=== PATIENT | male | born 1975 | race Caucasian/White ===

== ENCOUNTER 2018-09-05 21:47 | Emergency (ER) | payer MEDICAID ==
[2018-09-06] MEDS: DIPHTH/TET/ACEL PERTUSS (ADULT) 0.5 ML VIAL IM* (01:42)
== END 2018-09-06 02:12 | disposition home or self-care (01) ==
LOC: FTE 21:47
DX: L03.115 Cellulitis of right lower limb (principal); E11.9 Type 2 diabetes mellitus without complications; I10 Essential (primary) hypertension; Z23 Encounter for immunization; Z79.84 Long term (current) use of oral hypoglycemic drugs
CPT/HCPCS: 90471; 90715; 99283

== ENCOUNTER 2019-01-07 02:14 | Emergency (ER) | payer MEDICAID ==
[2019-01-07] MEDS: HYDROCODONE/APAP (10/325) TAB PO (03:24)
== END 2019-01-07 05:46 | disposition home or self-care (01) ==
LOC: FTE 02:14
DX: L03.115 Cellulitis of right lower limb (principal); E11.9 Type 2 diabetes mellitus without complications; I10 Essential (primary) hypertension; Z79.4 Long term (current) use of insulin
CPT/HCPCS: 73610; 73610-RT; 73630; 93971; 99284-25

== ENCOUNTER 2019-01-10 00:03 | Inpatient (IN) | payer MEDICAID ==
[2019-01-10 00:30] LABS: ADD MAN DIFF? NO
[2019-01-10 00:32] LABS: BASOPHILS % 0.3 % (0.0-2.0); EOSINOPHILS # 0.1 10^3/ul (0.0-0.5); EOSINOPHILS % 0.6 % (0.0-7.0); HEMATOCRIT 34.8 % (42.0-52.0); HEMOGLOBIN 11.9 g/dl (14.0-18.0); LYMPHOCYTES # 1.5 10^3/ul (0.8-2.9); LYMPHOCYTES % 10.1 % (15.0-51.0); MEAN CORPUSCULAR HEMOGLOBIN 29.3 pg (29.0-33.0); MEAN CORPUSCULAR HGB CONC 34.2 g/dl (32.0-37.0); MEAN CORPUSCULAR VOLUME 85.7 fl (82.0-101.0); MEAN PLATELET VOLUME 9.8 fl (7.4-10.4); MONOCYTE # 1.2 10^3/ul (0.3-0.9); MONOCYTES % 8.2 % (0.0-11.0); NEUTROPHIL # 11.7 10^3/ul (1.6-7.5); NEUTROPHILS % 80.3 % (39.0-77.0); PLATELET COUNT 252 10^3/UL (140-415); RED BLOOD COUNT 4.06 10^6/ul (4.70-6.10); RED CELL DISTRIBUTION WIDTH 11.6 % (11.5-14.5)
[2019-01-10 00:32] LABS: WHITE BLOOD COUNT 14.6 10^3/ul (4.8-10.8)
[2019-01-10] MEDS: SODIUM CHLORIDE 0.9% 1L BAG IV* (00:36)
[2019-01-10] MEDS: PIPER-TAZO 3.375 GM IV (PMX) 100 ML IVPB (00:36)
[2019-01-10] MEDS: ACETAMINOPHEN 325 MG TAB PO (00:36)
[2019-01-10 00:50] LABS: ADD UMIC YES; UR ASCORBIC ACID NEGATIVE (NEGATIVE); UR BILIRUBIN (Dip) NEGATIVE (NEGATIVE); UR BLOOD (Dip) 1+ mg/dL (NEGATIVE); UR CLARITY CLEAR (CLEAR); UR COLOR YELLOW (YELLOW); UR GLUCOSE (Dip) 3+ mg/dL (NEGATIVE); UR KETONES (Dip) NEGATIVE (NEGATIVE); UR LEUKOCYTE ESTERASE (Dip) NEGATIVE Leu/ul (NEGATIVE); UR NITRITE (Dip) NEGATIVE (NEGATIVE); UR RBC 0 /HPF (0-5); UR SPECIFIC GRAVITY (Dip) 1.027 (1.003-1.030); UR TOTAL PROTEIN (Dip) NEGATIVE (NEGATIVE); UR UROBILINOGEN (Dip) 1+ mg/dL (NEGATIVE); UR WBC 1 /HPF (0-5)
[2019-01-10 00:52] LABS: INR 0.95; PROTIME 12.8 Sec (11.9-14.9)
[2019-01-10 00:53] LABS: PARTIAL THROMBOPLASTIN TIME 35.7 Sec (23.0-35.0)
[2019-01-10 00:54] LABS: ALANINE AMINOTRANSFERASE 31 IU/L (13-69); ALBUMIN/GLOBULIN RATIO 1.05; ALKALINE PHOSPHATASE 171 IU/L (42-121); ANION GAP 12 (5-13); ASPARTATE AMINO TRANSFERASE 21 IU/L (15-46); BILIRUBIN,INDIRECT 0.3 mg/dl (0-1.1); BILIRUBIN,TOTAL 0.3 mg/dl (0.2-1.3); BLOOD UREA NITROGEN 12 mg/dl (7-20); CARBON DIOXIDE 22 mmol/L (21-31); CHLORIDE 101 mmol/L (97-110); CREATININE 0.71 mg/dl (0.61-1.24); Estimated GFR > 60 mL/min (>60); POTASSIUM 4.3 mmol/L (3.5-5.1); SODIUM 135 mmol/L (135-144); TOTAL PROTEIN 7.8 g/dl (6.1-8.1)
[2019-01-10 01:00] LABS: GLUCOSE 440 mg/dl (70-220)
[2019-01-10] MEDS ORDERED: ACETAMINOPHEN 325 MG TAB PO ×2 (01:00→03:30)
[2019-01-10] MEDS ORDERED: ONDANSETRON 4 MG INJ IV ×2 (01:00→03:30)
[2019-01-10 01:06] LABS: TROPONIN-I < 0.012 ng/ml (0.000-0.120)
[2019-01-10] MEDS: VANCOMYCIN 1 GM (PMX) 250 ML IVPB (01:07)
[2019-01-10] MEDS: INSULIN REGULAR, HUMAN 100 UNIT/1 ML 3ML VIAL IVP (02:50)
[2019-01-10] MEDS ORDERED: DEXTROSE 50% 50 ML SYRINGE IV ×3 (03:00→04:00)
[2019-01-10] MEDS ORDERED: NACL 0.9% 3 ML SYG IV (03:30)
[2019-01-10] MEDS ORDERED: ALBUTEROL/IPRATROPIUM (NEB) 3 ML AMP HHN (03:30)
[2019-01-10] MEDS ORDERED: PROMETHAZINE/CODEINE 5ML CUP PO (03:30)
[2019-01-10] MEDS ORDERED: GLUCAGON 1 MG INJ IM (04:00)
[2019-01-10] MEDS ORDERED: GLUCOSE GEL 15 GRAM TUBE PO ×2 (04:00)
[2019-01-10] MEDS ORDERED: GLUCOSE GEL 15 GRAM TUBE BUCCAL (04:00)
[2019-01-10] MEDS: SOD CHLORIDE 0.9% 1,000 ML IV ×3 (04:11→20:36)
[2019-01-10 05:44] LABS: ADD MAN DIFF? NO
[2019-01-10 05:49] LABS: BASOPHILS % 0.2 % (0.0-2.0); EOSINOPHILS # 0.1 10^3/ul (0.0-0.5); EOSINOPHILS % 0.6 % (0.0-7.0); HEMATOCRIT 29.4 % (42.0-52.0); HEMOGLOBIN 10.2 g/dl (14.0-18.0); LYMPHOCYTES # 1.7 10^3/ul (0.8-2.9); LYMPHOCYTES % 13.6 % (15.0-51.0); MEAN CORPUSCULAR HEMOGLOBIN 29.8 pg (29.0-33.0); MEAN CORPUSCULAR HGB CONC 34.7 g/dl (32.0-37.0); MONOCYTE # 1.2 10^3/ul (0.3-0.9); MONOCYTES % 9.3 % (0.0-11.0); NEUTROPHIL # 9.5 10^3/ul (1.6-7.5); PLATELET COUNT 208 10^3/UL (140-415); RED BLOOD COUNT 3.42 10^6/ul (4.70-6.10); RED CELL DISTRIBUTION WIDTH 11.6 % (11.5-14.5)
[2019-01-10 05:49] LABS: WHITE BLOOD COUNT 12.5 10^3/ul (4.8-10.8)
[2019-01-10] MEDS: PANTOPRAZOLE (EC) 40 MG TAB PO (05:54)
[2019-01-10] MEDS: VANCOMYCIN 1 GM 250 ML IVPB ×3 (05:54→22:10)
[2019-01-10] MEDS: IBUPROFEN 600 MG TAB PO ×4 (05:55→23:47)
[2019-01-10 06:08] LABS: HEMOGLOBIN A1C 9.2 % (0-5.9)
[2019-01-10 06:10] LABS: LACTIC ACID 1.2 mmol/L (0.5-2.0)
[2019-01-10 06:23] LABS: ALANINE AMINOTRANSFERASE 38 IU/L (13-69); ALBUMIN 2.7 g/dl (3.3-4.9); ALKALINE PHOSPHATASE 125 IU/L (42-121); ANION GAP 8 (5-13); ASPARTATE AMINO TRANSFERASE 22 IU/L (15-46); BILIRUBIN,INDIRECT 0.3 mg/dl (0-1.1); BILIRUBIN,TOTAL 0.3 mg/dl (0.2-1.3); BLOOD UREA NITROGEN 10 mg/dl (7-20); CALCIUM 7.6 mg/dl (8.4-10.2); CARBON DIOXIDE 21 mmol/L (21-31); CHLORIDE 109 mmol/L (97-110); CREATININE 0.62 mg/dl (0.61-1.24); Estimated GFR > 60 mL/min (>60); GLUCOSE 294 mg/dl (70-220); MAGNESIUM 1.7 mg/dl (1.7-2.5); PHOSPHORUS 2.9 mg/dl (2.5-4.9); POTASSIUM 4.2 mmol/L (3.5-5.1); SODIUM 138 mmol/L (135-144); TOTAL PROTEIN 5.7 g/dl (6.1-8.1)
[2019-01-10] MEDS: INSULIN ASPART [NOVOLOG] 3 ML PEN SC ×7 (07:59→20:29)
[2019-01-10] MEDS: metFORMIN 500 MG TAB PO ×2 (08:06→17:38)
[2019-01-10] MEDS: INSULIN GLARGINE [LANTus] (100 UNITS/ML) SYG SC (08:06)
[2019-01-10] MEDS: CEFEPIME 1GM/50 ML (PMX) 50 ML IVPB ×2 (08:56→20:25)
[2019-01-10] MEDS ORDERED: NON-FORMULARY/PATIENT OWN MED (Omeprazole* 40 MG) PO (09:00)
[2019-01-10] MEDS ORDERED: VANCOMYCIN IV PER PHARMACY XX (09:00)
[2019-01-10] MEDS: HEPARIN 5,000 UNIT/1 ML VIAL SC ×2 (09:43→20:28)
[2019-01-11] MEDS: ACCU-CHEK XX (02:06)
[2019-01-11] MEDS: SOD CHLORIDE 0.9% 1,000 ML IV ×3 (02:07→15:39)
[2019-01-11] MEDS: PANTOPRAZOLE (EC) 40 MG TAB PO (05:42)
[2019-01-11] MEDS: IBUPROFEN 600 MG TAB PO ×3 (05:42→17:08)
[2019-01-11 06:08] LABS: ADD MAN DIFF? NO
[2019-01-11 06:11] LABS: BASOPHILS % 0.4 % (0.0-2.0); EOSINOPHILS # 0.2 10^3/ul (0.0-0.5); EOSINOPHILS % 1.8 % (0.0-7.0); MEAN CORPUSCULAR HEMOGLOBIN 29.6 pg (29.0-33.0); MEAN CORPUSCULAR HGB CONC 34.3 g/dl (32.0-37.0); MEAN CORPUSCULAR VOLUME 86.4 fl (82.0-101.0); MEAN PLATELET VOLUME 10.1 fl (7.4-10.4); MONOCYTE # 0.9 10^3/ul (0.3-0.9); MONOCYTES % 8.5 % (0.0-11.0); NEUTROPHIL # 7.9 10^3/ul (1.6-7.5); PLATELET COUNT 266 10^3/UL (140-415); RED BLOOD COUNT 4.05 10^6/ul (4.70-6.10); RED CELL DISTRIBUTION WIDTH 11.9 % (11.5-14.5)
[2019-01-11 06:11] LABS: WHITE BLOOD COUNT 11.1 10^3/ul (4.8-10.8)
[2019-01-11 06:50] LABS: ANION GAP 10 (5-13); BLOOD UREA NITROGEN 9 mg/dl (7-20); CALCIUM 9.2 mg/dl (8.4-10.2); CARBON DIOXIDE 24 mmol/L (21-31); CHLORIDE 108 mmol/L (97-110); CREATININE 0.62 mg/dl (0.61-1.24); Estimated GFR > 60 mL/min (>60); GLUCOSE 153 mg/dl (70-220); MAGNESIUM 1.9 mg/dl (1.7-2.5); PHOSPHORUS 3.3 mg/dl (2.5-4.9); POTASSIUM 3.9 mmol/L (3.5-5.1); SODIUM 142 mmol/L (135-144)
[2019-01-11 07:18] LABS: VANCOMYCIN,TROUGH 10.9 ug/ml (10.0-20.0)
[2019-01-11] MEDS: VANCOMYCIN 1 GM 250 ML IVPB ×3 (07:44→23:12)
[2019-01-11] MEDS: INSULIN GLARGINE [LANTus] (100 UNITS/ML) SYG SC (08:02)
[2019-01-11] MEDS: INSULIN ASPART [NOVOLOG] 3 ML PEN SC ×7 (08:03→21:00)
[2019-01-11] MEDS: HEPARIN 5,000 UNIT/1 ML VIAL SC ×2 (08:04→21:50)
[2019-01-11] MEDS: metFORMIN 500 MG TAB PO ×2 (08:04→17:09)
[2019-01-11] MEDS: CEFEPIME 1GM/50 ML (PMX) 50 ML IVPB ×2 (09:45→21:50)
[2019-01-11 13:08] LABS: C-REACTIVE PROTEIN 15.7 mg/dl (0.0-0.9)
[2019-01-11 13:16] LABS: PROCALCITONIN 0.11 ng/mL (0.00-0.10)
[2019-01-11 13:29] LABS: ERYTHROCYTE SEDIMENTATION RATE 109 mm/Hr (0-15)
[2019-01-11] MEDS ORDERED: hydrALAzine 20 MG INJ IV (16:30)
[2019-01-12] MEDS: IBUPROFEN 600 MG TAB PO ×4 (00:40→18:01)
[2019-01-12] MEDS: ACCU-CHEK XX (02:00)
[2019-01-12] MEDS: VANCOMYCIN 1 GM 250 ML IVPB ×3 (05:44→22:04)
[2019-01-12] MEDS: PANTOPRAZOLE (EC) 40 MG TAB PO (05:44)
[2019-01-12] MEDS: SOD CHLORIDE 0.9% 1,000 ML IV ×3 (05:50→21:05)
[2019-01-12] MEDS: INSULIN ASPART [NOVOLOG] 3 ML PEN SC ×7 (07:54→20:57)
[2019-01-12] MEDS: CEFEPIME 1GM/50 ML (PMX) 50 ML IVPB ×2 (08:29→20:54)
[2019-01-12] MEDS: metFORMIN 500 MG TAB PO ×2 (08:29→17:20)
[2019-01-12] MEDS: INSULIN GLARGINE [LANTus] (100 UNITS/ML) SYG SC (08:31)
[2019-01-12] MEDS: HEPARIN 5,000 UNIT/1 ML VIAL SC ×2 (08:32→20:58)
[2019-01-12] MEDS: DAKINS 0.0125%(1/40) 473 ML SOLUTION TP (12:34)
[2019-01-12 18:05] LABS: ADD MAN DIFF? NO
[2019-01-12 18:16] LABS: BASOPHILS % 0.3 % (0.0-2.0); EOSINOPHILS # 0.2 10^3/ul (0.0-0.5); EOSINOPHILS % 1.5 % (0.0-7.0); HEMATOCRIT 31.5 % (42.0-52.0); HEMOGLOBIN 10.8 g/dl (14.0-18.0); LYMPHOCYTES # 1.1 10^3/ul (0.8-2.9); LYMPHOCYTES % 11.2 % (15.0-51.0); MEAN CORPUSCULAR HEMOGLOBIN 29.4 pg (29.0-33.0); MEAN CORPUSCULAR HGB CONC 34.3 g/dl (32.0-37.0); MEAN CORPUSCULAR VOLUME 85.8 fl (82.0-101.0); MEAN PLATELET VOLUME 9.5 fl (7.4-10.4); MONOCYTE # 0.6 10^3/ul (0.3-0.9); MONOCYTES % 6.3 % (0.0-11.0); NEUTROPHIL # 7.8 10^3/ul (1.6-7.5); NEUTROPHILS % 80.3 % (39.0-77.0); PLATELET COUNT 292 10^3/UL (140-415); RED BLOOD COUNT 3.67 10^6/ul (4.70-6.10); RED CELL DISTRIBUTION WIDTH 11.8 % (11.5-14.5)
[2019-01-12 18:16] LABS: WHITE BLOOD COUNT 9.7 10^3/ul (4.8-10.8)
[2019-01-12 18:33] LABS: C-REACTIVE PROTEIN 7.4 mg/dl (0.0-0.9)
[2019-01-12 19:38] LABS: ERYTHROCYTE SEDIMENTATION RATE 90 mm/Hr (0-15)
[2019-01-12 23:01] LABS: PROCALCITONIN 0.09 ng/mL (0.00-0.10)
[2019-01-13] MEDS: IBUPROFEN 600 MG TAB PO ×4 (00:13→17:41)
[2019-01-13] MEDS: ACCU-CHEK XX (02:00)
[2019-01-13] MEDS: SOD CHLORIDE 0.9% 1,000 ML IV ×2 (04:06→12:00)
[2019-01-13] MEDS: PANTOPRAZOLE (EC) 40 MG TAB PO (05:35)
[2019-01-13] MEDS: VANCOMYCIN 1 GM 250 ML IVPB ×3 (05:35→22:30)
[2019-01-13 07:31] LABS: ADD MAN DIFF? NO
[2019-01-13 07:39] LABS: WHITE BLOOD COUNT 9.2 10^3/ul (4.8-10.8)
[2019-01-13 07:39] LABS: BASOPHIL # 0.1 10^3/ul (0.0-0.1); BASOPHILS % 0.5 % (0.0-2.0); EOSINOPHILS # 0.2 10^3/ul (0.0-0.5); HEMATOCRIT 31.4 % (42.0-52.0); HEMOGLOBIN 10.6 g/dl (14.0-18.0); LYMPHOCYTES # 1.7 10^3/ul (0.8-2.9); LYMPHOCYTES % 18.4 % (15.0-51.0); MEAN CORPUSCULAR HEMOGLOBIN 29.3 pg (29.0-33.0); MEAN CORPUSCULAR HGB CONC 33.8 g/dl (32.0-37.0); MEAN CORPUSCULAR VOLUME 86.7 fl (82.0-101.0); MEAN PLATELET VOLUME 9.7 fl (7.4-10.4); MONOCYTE # 0.9 10^3/ul (0.3-0.9); MONOCYTES % 9.6 % (0.0-11.0); NEUTROPHIL # 6.3 10^3/ul (1.6-7.5); NEUTROPHILS % 69.1 % (39.0-77.0); PLATELET COUNT 289 10^3/UL (140-415); RED BLOOD COUNT 3.62 10^6/ul (4.70-6.10); RED CELL DISTRIBUTION WIDTH 11.8 % (11.5-14.5)
[2019-01-13] MEDS: INSULIN ASPART [NOVOLOG] 3 ML PEN SC ×7 (08:00→21:00)
[2019-01-13 08:05] LABS: ANION GAP 8 (5-13); BLOOD UREA NITROGEN 9 mg/dl (7-20); CARBON DIOXIDE 28 mmol/L (21-31); CHLORIDE 106 mmol/L (97-110); Estimated GFR > 60 mL/min (>60); GLUCOSE 131 mg/dl (70-220); POTASSIUM 3.9 mmol/L (3.5-5.1); SODIUM 142 mmol/L (135-144)
[2019-01-13] MEDS: HEPARIN 5,000 UNIT/1 ML VIAL SC ×2 (08:16→21:39)
[2019-01-13] MEDS: INSULIN GLARGINE [LANTus] (100 UNITS/ML) SYG SC (08:16)
[2019-01-13] MEDS: CEFEPIME 1GM/50 ML (PMX) 50 ML IVPB ×2 (08:19→21:30)
[2019-01-13] MEDS: DAKINS 0.0125%(1/40) 473 ML SOLUTION TP (08:20)
[2019-01-13] MEDS: metFORMIN 500 MG TAB PO ×2 (08:20→17:41)
[2019-01-14] MEDS: IBUPROFEN 600 MG TAB PO ×5 (00:10→23:50)
[2019-01-14] MEDS: ACCU-CHEK XX (02:00)
[2019-01-14] MEDS: VANCOMYCIN 1 GM 250 ML IVPB ×2 (06:05→13:25)
[2019-01-14] MEDS: PANTOPRAZOLE (EC) 40 MG TAB PO (06:06)
[2019-01-14 06:22] LABS: ADD MAN DIFF? NO
[2019-01-14 06:27] LABS: WHITE BLOOD COUNT 6.6 10^3/ul (4.8-10.8)
[2019-01-14 06:27] LABS: BASOPHILS % 0.6 % (0.0-2.0); EOSINOPHILS # 0.2 10^3/ul (0.0-0.5); EOSINOPHILS % 3.6 % (0.0-7.0); HEMOGLOBIN 10.8 g/dl (14.0-18.0); LYMPHOCYTES # 1.5 10^3/ul (0.8-2.9); MEAN CORPUSCULAR HEMOGLOBIN 28.9 pg (29.0-33.0); MEAN CORPUSCULAR HGB CONC 33.8 g/dl (32.0-37.0); MEAN CORPUSCULAR VOLUME 85.6 fl (82.0-101.0); MEAN PLATELET VOLUME 9.3 fl (7.4-10.4); MONOCYTE # 0.6 10^3/ul (0.3-0.9); MONOCYTES % 9.7 % (0.0-11.0); NEUTROPHIL # 4.2 10^3/ul (1.6-7.5); NEUTROPHILS % 63.5 % (39.0-77.0); PLATELET COUNT 289 10^3/UL (140-415); RED BLOOD COUNT 3.74 10^6/ul (4.70-6.10); RED CELL DISTRIBUTION WIDTH 11.9 % (11.5-14.5)
[2019-01-14 06:56] LABS: ANION GAP 6 (5-13); BLOOD UREA NITROGEN 10 mg/dl (7-20); CALCIUM 9.4 mg/dl (8.4-10.2); CARBON DIOXIDE 28 mmol/L (21-31); CHLORIDE 107 mmol/L (97-110); CREATININE 0.57 mg/dl (0.61-1.24); Estimated GFR > 60 mL/min (>60); GLUCOSE 138 mg/dl (70-220); SODIUM 141 mmol/L (135-144)
[2019-01-14] MEDS: INSULIN ASPART [NOVOLOG] 3 ML PEN SC ×7 (08:17→21:00)
[2019-01-14] MEDS: INSULIN GLARGINE [LANTus] (100 UNITS/ML) SYG SC (08:19)
[2019-01-14] MEDS: HEPARIN 5,000 UNIT/1 ML VIAL SC ×2 (08:21→22:22)
[2019-01-14] MEDS: CEFEPIME 1GM/50 ML (PMX) 50 ML IVPB (08:22)
[2019-01-14] MEDS: metFORMIN 500 MG TAB PO ×2 (08:23→17:18)
[2019-01-14] MEDS: LISINOPRIL 5 MG TAB PO (08:23)
[2019-01-14] MEDS: DAKINS 0.0125%(1/40) 473 ML SOLUTION TP (08:25)
[2019-01-14 08:26] LABS: MAGNESIUM 1.7 mg/dl (1.7-2.5)
[2019-01-14 08:26] LABS: PHOSPHORUS 4.2 mg/dl (2.5-4.9)
[2019-01-14] MEDS: CLINDAMYCIN 600 MG/D5W (PMX) 50 ML IVPB (22:20)
[2019-01-15] MEDS: ACCU-CHEK XX (02:00)
[2019-01-15] MEDS: CLINDAMYCIN 600 MG/D5W (PMX) 50 ML IVPB ×2 (06:16→13:48)
[2019-01-15] MEDS: PANTOPRAZOLE (EC) 40 MG TAB PO (06:16)
[2019-01-15] MEDS: IBUPROFEN 600 MG TAB PO ×3 (06:17→17:27)
[2019-01-15 07:28] LABS: ADD MAN DIFF? NO
[2019-01-15 07:34] LABS: BASOPHILS % 0.5 % (0.0-2.0); EOSINOPHILS # 0.2 10^3/ul (0.0-0.5); EOSINOPHILS % 3.1 % (0.0-7.0); HEMATOCRIT 33.6 % (42.0-52.0); HEMOGLOBIN 11.2 g/dl (14.0-18.0); LYMPHOCYTES # 1.6 10^3/ul (0.8-2.9); LYMPHOCYTES % 19.9 % (15.0-51.0); MEAN CORPUSCULAR HEMOGLOBIN 29.2 pg (29.0-33.0); MEAN CORPUSCULAR HGB CONC 33.3 g/dl (32.0-37.0); MEAN CORPUSCULAR VOLUME 87.5 fl (82.0-101.0); MEAN PLATELET VOLUME 9.4 fl (7.4-10.4); MONOCYTE # 0.7 10^3/ul (0.3-0.9); MONOCYTES % 8.3 % (0.0-11.0); NEUTROPHIL # 5.3 10^3/ul (1.6-7.5); NEUTROPHILS % 67.4 % (39.0-77.0); PLATELET COUNT 338 10^3/UL (140-415); RED BLOOD COUNT 3.84 10^6/ul (4.70-6.10); RED CELL DISTRIBUTION WIDTH 11.9 % (11.5-14.5)
[2019-01-15 07:34] LABS: WHITE BLOOD COUNT 7.8 10^3/ul (4.8-10.8)
[2019-01-15 07:56] LABS: PHOSPHORUS 4.3 mg/dl (2.5-4.9)
[2019-01-15 07:56] LABS: MAGNESIUM 1.8 mg/dl (1.7-2.5)
[2019-01-15 08:09] LABS: ANION GAP 7 (5-13); BLOOD UREA NITROGEN 11 mg/dl (7-20); CALCIUM 9.5 mg/dl (8.4-10.2); CARBON DIOXIDE 30 mmol/L (21-31); CHLORIDE 105 mmol/L (97-110); CREATININE 0.63 mg/dl (0.61-1.24); Estimated GFR > 60 mL/min (>60); GLUCOSE 131 mg/dl (70-220); POTASSIUM 4.5 mmol/L (3.5-5.1); SODIUM 142 mmol/L (135-144)
[2019-01-15] MEDS: metFORMIN 500 MG TAB PO ×2 (08:21→17:27)
[2019-01-15] MEDS: INSULIN ASPART [NOVOLOG] 3 ML PEN SC ×6 (08:22→17:27)
[2019-01-15] MEDS: INSULIN GLARGINE [LANTus] (100 UNITS/ML) SYG SC (08:23)
[2019-01-15] MEDS: LISINOPRIL 5 MG TAB PO (08:45)
[2019-01-15] MEDS: HEPARIN 5,000 UNIT/1 ML VIAL SC (08:46)
[2019-01-15] MEDS: CHOLECALCIFEROL 1,000 UNIT TAB PO (08:46)
[2019-01-15] MEDS: DAKINS 0.0125%(1/40) 473 ML SOLUTION TP ×2 (08:51→15:15)
== END 2019-01-15 20:19 | disposition home or self-care (01) | DRG 854 ==
LOC: E/R 00:03 → PP2 00:52
PROC: 0Y9M3ZX Drainage of Right Foot, Percutaneous Approach, Diagnostic (ICD-10-PCS; principal; 2019-01-11)
PROC: 0JBQ0ZZ Excision of Right Foot Subcutaneous Tissue and Fascia, Open Approach (ICD-10-PCS; 2019-01-14)
DX: A41.9 Sepsis, unspecified organism (principal); L03.115 Cellulitis of right lower limb; L02.611 Cutaneous abscess of right foot; E11.42 Type 2 diabetes mellitus with diabetic polyneuropathy; I10 Essential (primary) hypertension; B95.8 Unspecified staphylococcus as the cause of diseases classified elsewhere; Z79.4 Long term (current) use of insulin
CPT/HCPCS: 36415; 71045; 73630; 73718; 73721; 80048; 80053; 80202; 81001; 82306; 82652; 82962; 83036; 83605; 83735; 84100; 84145; 84484; 85025; 85610; 85651; 85730; 86140; 87040-91; 87070; 87086; 93005; 93922; 96374; 99285-25

== ENCOUNTER 2019-01-22 18:20 | Emergency (ER) | payer MEDICAID | END 2019-01-22 21:06 | disposition home or self-care (01) | LOC: FTE 18:20 | DX: Z48.01 Encounter for change or removal of surgical wound dressing (principal) | CPT/HCPCS: 99281 ==